=== PATIENT | female | born 1955 | race African-American/Black ===

== ENCOUNTER → 2019-10-15 | Day surgery (SDC) | payer MEDICAID ==
[2019-10-14 12:07] LABS: Basophils # (auto) 0 uL; Basophils % (auto) 0.7 % (0.0-2.0); Eosinophils # (auto) 0.1 uL; Eosinophils % (auto) 1.6 % (0.0-7.0); Hematocrit 43.5 % (36.0-46.0); Hemoglobin 14.6 g/dL (12.2-16.2); Lymphocytes % (auto) 34.6 % (10.0-50.0); Mean Corpuscular Hgb Conc. 33.6 g/dL (32.0-36.0); Mean Corpuscular Volume 92.2 fL (80.0-100.0); Monocytes # (auto) 0.4 uL; Monocytes % (auto) 6.7 % (0.0-12.0); Neutrophils # (auto) 3.2 uL; Neutrophils % (auto) 56.4 % (37.0-80.0); Nucleated Red Blood Cells % 0.1 %; Platelet Count (auto) 234 10^3/uL (140-450); Red Blood Cells 4.71 10^6/uL (4.0-5.20); Red Cell Distribution Width 13.7 % (11.8-14.3); White Blood Cell 5.8 10^3/uL (4.4-10.8)
[2019-10-14 12:27] LABS: INR 1.05 (0.9-1.15); Partial Thromboplastin Time 25.1 sec (23.64-32.05)
[2019-10-14 13:35] LABS: Potassium 3.3 mmol/L (3.5-5.1)
[2019-10-14 13:43] LABS: Albumin 3.8 g/dL (3.4-5.0); BUN/Creatinine Ratio 14.1; Bilirubin, Total 0.4 mg/dL (0.2-1.0); Calcium 8.6 mg/dL (8.5-10.1); Total Protein 8.2 g/dL (6.4-8.2)
[~2019-10-15] VITALS: Ht 154.9 cm; Wt 54.4 kg
[~2019-10-15] MED LIST: LEVO75TA6 PO; MIDAZOLAM HCL 1MG/1ML-2 ML VIAL ONE; ONDANSETRON HCL 4 MG/2 ML VIAL IV PRN; PROPOFOL 10 MG/ML 20 ML IV ONE; ROPIVACAINE 0.5% (5MG/ML) 20ML AMPULE IJ ONE; ceFAZolin 1GM/50ML 50 ML IV ONE; ePHEDrine SULFATE 50 MG/ML AMP IV PRN; fentaNYL CITRATE 100 MCG/2 ML VL IV PRN; fentaNYL CITRATE 100 MCG/2 ML VL ONE; hydrALAZINE HCL 20 MG/ML VL IV PRN
[2019-10-15 14:40] VITALS: BP 14/68
== END | disposition home or self-care (01) ==
LOC: SUR 10:01
PROVIDERS: ATTEND Podiatrist Foot & Ankle Surgery
DX: M20.11 Hallux valgus (acquired), right foot (principal); M21.621 Bunionette of right foot; M20.41 Other hammer toe(s) (acquired), right foot; E03.9 Hypothyroidism, unspecified; Z79.899 Other long term (current) drug therapy; Z98.890 Other specified postprocedural states
CPT/HCPCS: 28110; 28285; 28296; 36415; 73620; 80053; 85025; 85610; 85730; 88304; 88311; C1713; C1769; J0690; J2250; J2704; J2795; J3010; L3260

== ENCOUNTER 2020-01-14 06:39 | Day surgery (SDC) | payer MEDICAID ==
[2020-01-13 11:25] LABS: Basophils # (auto) 0 10 ^3/uL (0-0.2); Basophils % (auto) 0.7 % (0.0-2.0); Eosinophils # (auto) 0.1 10 ^3/uL (0-0.8); Eosinophils % (auto) 2.3 % (0.0-7.0); Lymphocytes # (auto) 1.9 10 ^3/uL (0.4-5.4); Lymphocytes % (auto) 29.3 % (10.0-50.0); Mean Corpuscular Hemoglobin 30.4 pg (28.0-32.0); Mean Corpuscular Hgb Conc. 33.4 g/dL (32.0-36.0); Monocytes # (auto) 0.5 10 ^3/uL (0-1.3); Monocytes % (auto) 7.4 % (0.0-12.0); Neutrophils # (auto) 3.8 10 ^3/uL (1.6-8.6); Neutrophils % (auto) 60.3 % (37.0-80.0); Platelet Count (auto) 256 10^3/uL (140-450); Red Blood Cells 4.61 10^6/uL (4.0-5.20); White Blood Cell 6.4 10^3/uL (4.4-10.8)
[2020-01-13 11:26] LABS: Urine Bacteria NONE SEEN /hpf (None Seen); Urine Blood Negative /uL (Negative); Urine Specific Gravity 1.009 (1.001-1.035); Urine WBC 1 /hpf (0 - 5)
[2020-01-13 11:40] LABS: Albumin 3.7 g/dL (3.4-5.0); Calcium 9.4 mg/dL (8.5-10.1); INR 1.07 (0.9-1.15); Partial Thromboplastin Time 26.5 sec (23.64-32.05); Potassium 4.4 mmol/L (3.5-5.1)
[2020-01-13 11:45] LABS: BUN/Creatinine Ratio 18.3; Bilirubin, Total 0.3 mg/dL (0.2-1.0); Total Protein 8.2 g/dL (6.4-8.2)
[~2020-01-14] VITALS: Ht 154.9 cm; Wt 55.3 kg
[~2020-01-14 06:39] MED LIST changes: -LEVO75TA6 PO; +LEVO88TA4 PO; -MIDAZOLAM HCL 1MG/1ML-2 ML VIAL ONE; -ONDANSETRON HCL 4 MG/2 ML VIAL IV PRN; -PROPOFOL 10 MG/ML 20 ML IV ONE; -ROPIVACAINE 0.5% (5MG/ML) 20ML AMPULE IJ ONE; -ceFAZolin 1GM/50ML 50 ML IV ONE; -ePHEDrine SULFATE 50 MG/ML AMP IV PRN; -fentaNYL CITRATE 100 MCG/2 ML VL IV PRN; -fentaNYL CITRATE 100 MCG/2 ML VL ONE; -hydrALAZINE HCL 20 MG/ML VL IV PRN
[2020-01-14] MEDS ORDERED: ceFAZolin 1GM/50ML 50 ML IV ONE (07:29)
[2020-01-14] MEDS ORDERED: PROPOFOL 10 MG/ML 20 ML IV ONE (07:49)
[2020-01-14] MEDS ORDERED: ONDANSETRON HCL 4 MG/2 ML VIAL ONE (07:49)
[2020-01-14] MEDS ORDERED: SODIUM CHLORIDE LOCK 10 ML ONE (07:49)
[2020-01-14] MEDS ORDERED: fentaNYL CITRATE 100 MCG/2 ML VL ONE (07:49)
[2020-01-14] MEDS ORDERED: MIDAZOLAM HCL 1MG/1ML-2 ML VIAL ONE (07:49)
[2020-01-14] MEDS ORDERED: METOCLOPRAMIDE HCL 5MG/ml INJ 2ml VIAL IV PRN (08:00)
[2020-01-14] MEDS ORDERED: fentaNYL CITRATE 100 MCG/2 ML VL IV PRN (08:00)
[2020-01-14] MEDS ORDERED: MORPHINE SULFATE 4 MG/ML SYR/VIAL IV PRN (08:00)
[2020-01-14] MEDS ORDERED: KETOROLAC TROMETH 15 mg/ml 1ML VL IV ONE (08:00)
[2020-01-14] MEDS ORDERED: HYDROmorphone HCL 2 MG/ML VL IV PRN (08:00)
[2020-01-14] MEDS ORDERED: ROPIVACAINE 0.5% (5MG/ML) 20ML AMPULE IJ ONE ×2 (08:15→08:46)
[2020-01-14] MEDS: NEOMYCIN-BACITRACIN-POLYM 15GM TOP OINT TOP ONE ×2 (08:15→09:32)
[2020-01-14 09:57] VITALS: BP 120/71
== END 2020-01-14 11:04 | disposition home or self-care (01) ==
LOC: SUR 06:39
PROVIDERS: ATTEND Podiatrist Foot & Ankle Surgery
DX: T84.84XA Pain due to internal orthopedic prosthetic devices, implants and grafts, initial encounter (principal); L90.5 Scar conditions and fibrosis of skin; E03.9 Hypothyroidism, unspecified; Z79.899 Other long term (current) drug therapy
CPT/HCPCS: 14040; 20680; 36415; 80053; 81001; 85025; 85610; 85730; 88300; 88304; J0690; J2250; J2405; J2704; J2795; J3010; J7030; L3260